=== PATIENT | female | born 1975 | race African-American/Black ===

== ENCOUNTER 2018-03-05 07:02 | Emergency (ER) | payer OTHER ==
[~2018-03-05] VITALS: Ht 160 cm; Wt 74.8 kg
[2018-03-05] MEDS ORDERED: IBUP400T18 PO (07:14)
[2018-03-05] MEDS ORDERED: KETOROLAC 60 MG/2 ML VIAL. IM ONE (07:45)
--- NOTE | 2018-03-05 08:56 | RAD ---
CT of the left knee without contrast, 03/05/2018: HISTORY: Injury Noncontrast scans were obtained with multiplanar reconstructions produced. No fracture or dislocation is identified. There is a moderate sized knee joint effusion. The anterior cruciate ligament is poorly defined. There is mild prepatellar soft tissue swelling. IMPRESSION: 1. No acute bony abnormality is detected. 2. Moderate-sized knee joint effusion. 3. MR scanning may be useful for further evaluation, if clinically indicated. Electronically signed by: Myles Stevens MD (03/05/2018 8:52 AM) [facility]
[2018-03-05] MEDS ORDERED: TRAM-48 PO (09:21)
--- NOTE | 2018-03-05 09:24 | PHYS DOC ---
Past History Past Medical History: Asthma Past Surgical History: Cholecystectomy, Hysterectomy, Other Alcohol Use: None Drug Use: None Adult General Chief Complaint Chief Complaint: KNEE INJURY HPI HPI 42-year-old female patient states she had an accidental fall from a standing position and landed on her left knee yesterday and was seen at [place] emergency room last night with negative x-ray of her knee. Patient states she gradually developed edema and increasing pain of left knee with numbness of left foot. Patient states she is not able to bend her knee and bearing weight because of pain. Patient treated her pain 03/15 and states her pain did not get better with ibuprofen that she took last night at 2100. Review of Systems Review of Systems Constitutional: Denies fever or chills [] Eyes: Denies change in visual acuity, redness, or eye pain [] HENT: Denies nasal congestion or sore throat [] Respiratory: Denies cough or shortness of breath [] Cardiovascular: No additional information not addressed in HPI [] GI: Denies abdominal pain, nausea, vomiting, bloody stools or diarrhea [] : Denies dysuria or hematuria [] Musculoskeletal: Denies back pain , reports joint pain [] Integument: Denies rash or skin lesions [] Neurologic: Denies headache, focal weakness or sensory changes [] Endocrine: Denies polyuria or polydipsia [] All other systems were reviewed and found to be within normal limits, except as documented in this note. Current Medications Current Medications Current Medications Medications (Trade) Dose Ordered Sig/Darya Start Time Stop Time Status Last Admin Dose Admin Ketorolac Tromethamine (Toradol Im) 60 mg 1X ONCE 03/05/18 07:45 03/05/18 07:47 DC 03/05/18 07:40 60 MG Allergies Allergies Allergies Coded Allergies Type Severity Reaction Last Updated Verified morphine Allergy Unknown Anaphylaxis 03/05/18 Yes Physical Exam Physical Exam Constitutional: Well developed, well nourished, mild distress, non-toxic appearance. [] HENT: Normocephalic, atraumatic Eyes: PERRLA, EOMI, conjunctiva normal, no discharge. [] Neck: Normal range of motion, no tenderness, supple, no stridor. [] Cardiovascular:Heart rate regular rhythm, no murmur [] Lungs & Thorax: Bilateral breath sounds clear to auscultation [] Skin: Warm, dry, no erythema, no rash. [] Back: No tenderness, no CVA tenderness. [] Extremities: Left knee with moderate effusion and limited range of motion without focal neuro deficit or focal tenderness , no cyanosis, no clubbing. [] Neurologic: Alert and oriented X 3, normal motor function, normal sensory function, no focal deficits noted. [] Psychologic: Affect normal, judgement normal, mood normal. [] Current Patient Data Vital Signs Vital Signs Date Time Temp Pulse Resp B/P (MAP) Pulse Ox O2 Delivery O2 Flow Rate FiO2 03/05/18 07:02 99.3 94 18 100 Room Air EKG EKG [] Radiology/Procedures Radiology/Procedures [][place] [address] IMAGING REPORT Signed PATIENT: NICK NAGEL ACCOUNT: [id number] : 1975 LOCATION: ER AGE: 42 SEX: F EXAM STATUS: DEP ER ORD. PHYSICIAN: BRIGITTE ORTIZ MD REASON: fall, negative x ray , moderate edema PROCEDURE: CT LOWER EXTREMITY WO LEFT ADDENDUM PQRS Compliance Statement: One or more of the following individualized dose reduction techniques were utilized for this examination: 1. Automated exposure control 2. Adjustment of the mA and/or kV according to patient size 3. Use of iterative reconstruction technique Electronically signed by: Myles Stevens MD (03/05/2018 5:01 PM) [facility] DICTATED AND SIGNED BY: MYLES STEVENS MD DATE: 03/05/18 [id number] CC: BRIGITTE ORTIZ MD; PCP,NO ~ CT of the left knee without contrast, 03/05/2018: HISTORY: Injury Noncontrast scans were obtained with multiplanar reconstructions produced. No fracture or dislocation is identified. There is a moderate sized knee joint effusion. The anterior cruciate ligament is poorly defined. There is mild prepatellar soft tissue swelling. IMPRESSION: 1. No acute bony abnormality is detected. 2. Moderate-sized knee joint effusion. 3. MR scanning may be useful for further evaluation, if clinically indicated. Electronically signed by: Myles Stevens MD (03/05/2018 8:52 AM) [facility] DICTATED AND SIGNED BY: MYLES STEVENS MD DATE: 03/05/18 0845 CC: BRIGITTE ORTIZ MD; PCP,REZA ~ Course & Med Decision Making Course & Med Decision Making Pertinent Imaging studies reviewed. (See chart for details) Evaluation of patient in ER showed 42-year-old female patient with left knee pain and effusion after a fall yesterday. Patient had CT of knee that showed moderate effusion without fracture or dislocation. Patient already had crutches and knee immobilizer was applied and instructed to follow with her primary care physician for possible MRI. Dragon Disclaimer Dragon Disclaimer This electronic medical record was generated, in whole or in part, using a voice recognition dictation system. Departure Departure: Impression: Primary Impression: Left knee sprain Additional Impression: Effusion of left knee joint Disposition: HOME, SELF-CARE (At 0917) Condition: IMPROVED Referrals: PCPREZA (PCP) Patient Instructions: Knee Effusion, Knee Sprain Additional Instructions: Apply ice on your left knee Return to ER if not getting better Use home with crutches Follow-up with your primary care physician for possible MRI Scripts Tramadol Hcl (ULTRAM) 50 Mg Tablet 50 MG PO PRN Q6HRS PRN for PAIN, #20 TAB Prov: BRIGITTE ORTIZ MD 03/05/18 Problem Qualifiers BRIGITTE ORTIZ MD Mar 05, 2018 09:24
[2018-03-05 09:37] VITALS: BP 130/73
== END 2018-03-05 09:39 | disposition home or self-care (01) ==
LOC: ER 07:02
DX: S83.92XA Sprain of unspecified site of left knee, initial encounter (principal); M25.462 Effusion, left knee; J45.909 Unspecified asthma, uncomplicated; Z88.5 Allergy status to narcotic agent; W18.39XA Other fall on same level, initial encounter; Y93.89 Activity, other specified; Y92.89 Other specified places as the place of occurrence of the external cause; Y99.8 Other external cause status
CPT/HCPCS: 29505; 73700; 96372; 99284; J1885